=== PATIENT | male | born 1980 | race African-American/Black ===

== ENCOUNTER 2016-10-29 12:30 | Day surgery (SDC) | payer SELFPAY ==
[~2016-10-29 12:30] MED LIST: MUPI22OI2 TP
[2016-10-29] MEDS ORDERED: MAGNESIUM SULFATE 2GM 50 ML IV ONE (14:45)
[2016-10-29] MEDS ORDERED: EPINEPHRINE VIAL 4 MG in IV NORMAL SALINE 250ML 250 ML IV PRN (15:00)
[2016-10-29] MEDS ORDERED: VANCOMYCIN PER PHARMACY MC PRN (15:00)
[2016-10-29] MEDS: IV NORMAL SALINE 1000ML BAG 1,000 ML IV PRN (15:41)
[2016-10-29] MEDS ORDERED: VECURONIUM BOLUS 10 MG VIAL. IV ONE (15:45)
--- NOTE | 2016-10-29 16:37 | RAD ---
Portable chest, 10/29/2016: History: Post bronchoscopy evaluation Comparison is made to the study of earlier the same day. The ET tube remains in place in satisfactory position. An NG tube extends into the stomach. A right subclavian catheter extends to the level of the atriocaval junction. The heart size is normal. There are mild patchy perihilar infiltrates, left greater than right. These have worsened slightly since earlier in the day. No pleural fluid or pneumothorax is evident. IMPRESSION: Slight interval worsening of the bilateral pulmonary infiltrates.
[2016-10-29] MEDS ORDERED: INSULIN REGULAR VIAL 150 UNIT in 0.9 % SODIUM CHLORIDE 150ML 150 ML IV PRN (16:45)
[2016-10-29 16:58] LABS: HCO3 ABG 24 mmol/L (21-28); PCO2 ABG 50 mmHg (35-46); PO2 ABG 99 mmHg (85-108); SAT O2 ABG 97 % (92-99)
[2016-10-29 16:59] LABS: FIO2 ABG 40
[2016-10-29 17:15] LABS: BASO # 0.1 x10^3/uL (0.0-0.2); BASO % 0 % (0-3); EOS % 0 % (0-3); HEMATOCRIT 31.2 % (39.0-53.0); HEMOGLOBIN 10.1 g/dL (13.0-17.5); LYMPH % 2 % (24-48); MEAN CORPUSCULAR HEMOGLOBIN 31 pg (25-35); MEAN CORPUSCULAR HGB CONC 32 g/dL (31-37); MEAN CORPUSCULAR VOLUME 96 fL (79-100); MONO % 7 % (0-9); NEUT % 90 % (31-73); PLATELET COUNT 70 x10^3/uL (140-400); RED BLOOD COUNT 3.25 x10^6/uL (4.30-5.70); RED CELL DISTRIBUTION WIDTH 14.5 % (11.5-14.5)
[2016-10-29 17:18] LABS: WHITE BLOOD COUNT 44.5 x10^3/uL (4.0-11.0)
[2016-10-29 17:22] LABS: CREATININE 1.3 mg/dL (0.7-1.3); GFR 76.5; POTASSIUM 4.3 mmol/L (3.5-5.1)
[2016-10-29 17:23] LABS: PROTHROMBIN TIME PATIENT 21.7 SEC (11.7-14.0)
[2016-10-29 17:28] LABS: ALBUMIN 2.1 g/dL (3.4-5.0); ALBUMIN/GLOBULIN RATIO 0.6 (1.0-1.7); DIRECT BILIRUBIN 0.2 mg/dL (0.0-0.2); MAGNESIUM 1.7 mg/dL (1.8-2.4); PHOSPHORUS 5.8 mg/dL (2.6-4.7); TOTAL BILIRUBIN 0.5 mg/dL (0.2-1.0); TOTAL PROTEIN 5.6 g/dL (6.4-8.2)
[2016-10-29 17:42] LABS: BILIRUBIN,URINE NEGATIVE (NEG); GLUCOSE,URINE >=1000 mg/dL (NEG); NITRITE,URINE NEGATIVE (NEG); PROTEIN,URINE NEGATIVE (NEG-TRACE); UROBILINOGEN,URINE 0.2 mg/dL (0.2 mg/dL)
[2016-10-29 17:58] LABS: BACTERIA,URINE 0 /HPF (0-FEW); SQUAMOUS EPITHELIAL CELL,UR OCC /LPF; WBC,URINE OCC /HPF (0-4)
[2016-10-29] MEDS ORDERED: VASOPRESSIN 40 UNIT in IV DEXTROSE 5% 100 ML IV PRN (18:00)
[2016-10-29] MEDS: VANCOMYCIN 1 GM in IV NORMAL SALINE 250ML 250 ML IV SCH (19:58)
[2016-10-29] MEDS: CEFTRIAXONE SODIUM 2 GM in IV NORMAL SALINE 100ML 100 ML IV SCH (21:06)
[2016-10-29 22:08] LABS: BASO # 0.1 x10^3/uL (0.0-0.2); BASO % 0 % (0-3); EOS % 0 % (0-3); HEMATOCRIT 29.8 % (39.0-53.0); HEMOGLOBIN 9.8 g/dL (13.0-17.5); LYMPH # 0.7 x10^3/uL (1.0-4.8); LYMPH % 2 % (24-48); MEAN CORPUSCULAR HEMOGLOBIN 31 pg (25-35); MEAN CORPUSCULAR HGB CONC 33 g/dL (31-37); MEAN CORPUSCULAR VOLUME 95 fL (79-100); MONO % 5 % (0-9); NEUT % 93 % (31-73); PLATELET COUNT 75 x10^3/uL (140-400); RED BLOOD COUNT 3.14 x10^6/uL (4.30-5.70); RED CELL DISTRIBUTION WIDTH 14.4 % (11.5-14.5); WHITE BLOOD COUNT 37.5 x10^3/uL (4.0-11.0)
[2016-10-29 22:19] LABS: INR 1.9 (0.8-1.1); PROTHROMBIN TIME PATIENT 20.4 SEC (11.7-14.0)
[2016-10-29 22:26] LABS: ALBUMIN 2.1 g/dL (3.4-5.0); DIRECT BILIRUBIN 0.1 mg/dL (0.0-0.2); MAGNESIUM 2.2 mg/dL (1.8-2.4); PHOSPHORUS 3.6 mg/dL (2.6-4.7); TOTAL BILIRUBIN 0.3 mg/dL (0.2-1.0); TOTAL PROTEIN 5.7 g/dL (6.4-8.2)
[2016-10-29] MEDS: POTASSIUM CHLORIDE 20MEQ 50 ML IV SCH ×2 (22:34→23:20)
[2016-10-29 22:38] LABS: CKMB INDEX 6.6 % (0-4); CKMB MASS 21.6 ng/mL (0.0-3.6)
[2016-10-29] MEDS ORDERED: CALCIUM GLUCONATE 1,000 MG/10 ML VIAL IVP ONE (23:00)
[2016-10-30 06:24] LABS: BASO % 0 % (0-3); EOS % 0 % (0-3); HEMATOCRIT 30.1 % (39.0-53.0); HEMOGLOBIN 9.7 g/dL (13.0-17.5); LYMPH # 0.7 x10^3/uL (1.0-4.8); LYMPH % 2 % (24-48); MEAN CORPUSCULAR HEMOGLOBIN 31 pg (25-35); MEAN CORPUSCULAR HGB CONC 32 g/dL (31-37); MEAN CORPUSCULAR VOLUME 97 fL (79-100); MONO % 7 % (0-9); NEUT % 91 % (31-73); PLATELET COUNT 65 x10^3/uL (140-400); RED BLOOD COUNT 3.11 x10^6/uL (4.30-5.70); RED CELL DISTRIBUTION WIDTH 14.6 % (11.5-14.5); WHITE BLOOD COUNT 39.9 x10^3/uL (4.0-11.0)
[2016-10-30 06:47] LABS: ALBUMIN 2.2 g/dL (3.4-5.0); DIRECT BILIRUBIN 0.2 mg/dL (0.0-0.2); MAGNESIUM 2.1 mg/dL (1.8-2.4); PHOSPHORUS 3.4 mg/dL (2.6-4.7); TOTAL BILIRUBIN 0.5 mg/dL (0.2-1.0); TOTAL PROTEIN 5.1 g/dL (6.4-8.2)
[2016-10-30 06:48] LABS: INR 1.7 (0.8-1.1); PROTHROMBIN TIME PATIENT 18.7 SEC (11.7-14.0)
[2016-10-30 07:02] LABS: CKMB INDEX 4.9 % (0-4); CKMB MASS 15.4 ng/mL (0.0-3.6)
--- NOTE | 2016-10-30 08:06 | RAD ---
Portable chest, 10/30/2016: History: Respiratory failure, planned organ donation Comparison is made to yesterday's study. The ET tube has its tip located well above the fallon. An NG tube extends into the stomach. A right subclavian central venous catheter extends to the level of the atriocaval junction. The heart size is normal. Mild parahilar infiltrates have partially cleared. There is no evidence of pneumothorax or pleural fluid. No new abnormality is detected. IMPRESSION: Improving pulmonary infiltrates.
--- NOTE | 2016-10-30 08:12 | EKG ---
[facility] [address] [place] [address] Test Date: 2016-10-30 Test Time: 08:04:57 Pat Name: DIMITRI PHAM Department: Room: 103 1 Gender: M Bow Stapler: LUIS A : 1980 Requested By: JOB RPINCE Order Number: [id number] Reading MD: Walter Walters Measurements Intervals [place] Rate: 112 P: 56 [place]: 140 QRS: 74 QRSD: 80 T: 59 QT: 328 QTc: 449 Interpretive Statements SINUS TACHYCARDIA OTHERWISE NORMAL ECG Electronically Signed On 10-30-2016 8:55:55 OIL PAINTER by Walter Walters
--- NOTE | 2016-10-30 08:54 | CARD ---
APPROVED REPORT EXAM: Two-dimensional and M-mode echocardiogram with Doppler and color Doppler. Other Information Quality : Average Rhythm : NSR INDICATION Organ Donation evaluation 2D DIMENSIONS Left Atrium(2D)3.6 (1.6-4.0cm)IVSd0.6 (0.7-1.1cm) Aortic Root(2D)2.4 (2.0-3.7cm)LVDd5.3 (3.9-5.9cm) LVOT Diameter2.0 (1.8-2.4cm)PWd0.7 (0.7-1.1cm) LVDs3.5 (2.5-4.0cm)FS (%) 34.0 % SV84.6 mlLVEF(%)62.5 (>50%) Aortic Valve AoV Peak Wesley.165.2cm/sAoV VTI31.6cm AO Peak GR.10.9mmHgLVOT VTI 25.95cm AO Mean GR.6mmHgAVA (VTI)2.48cm2 Mitral Valve MV E Peak Gr.7mmHgMV E Mean Gr.5mmHg MV LGW19vyKRK (PHT)4.07cm2 TDI Lateral E' P. V15.83cm/sMedial E' P. V15.25cm/s Tricuspid Valve TR P. Aeddnqfp530hm/sRAP XYTMOWNS98rhOs TR Peak Gr.32pqUyYLPR12pzAt Pulmonary Vein S1 Pcjynpcc06.2cm/sS2 Kiyleslm74.19cm/s D2 Nwjjtilg21.2cm/s LEFT VENTRICLE The left ventricle is normal size. There is normal left ventricular wall thickness. Left ventricle sy stolic function is normal. The Ejection Fraction is 60%. There is normal LV segmental wall motion. Th e left ventricular diastolic function and filling is normal for age. RIGHT VENTRICLE The right ventricle is normal size. The right ventricular systolic function is normal. ATRIA The left atrium size is normal. The right atrium size is normal. The interatrial septum is intact wit h no evidence for an atrial septal defect or patent foramen ovale as noted on 2-D or Doppler imaging. AORTIC VALVE The aortic valve is normal in structure and function. The aortic valve is trileaflet. Doppler and Col or Flow revealed no significant aortic regurgitation. There is no significant aortic valvular stenosi s. MITRAL VALVE The mitral valve is normal in structure and function. There is no mitral valve stenosis. Doppler and Color Flow revealed mild mitral regurgitation. TRICUSPID VALVE The tricuspid valve is normal in structure and function. Doppler and Color Flow revealed trace to mil d tricuspid regurgitation. The PA pressure was estimated at 35 mmHg. There is no tricuspid valve sten osis. PULMONIC VALVE The pulmonary valve is normal in structure and function. Doppler and Color Flow revealed no pulmonic valvular regurgitation. There is no pulmonic valvular stenosis. GREAT VESSELS The aortic root is normal in size. The ascending aorta is normal in size. Normal pulmonary venous jos w (Doppler). The IVC is dilated and collapses <50% with inspiration. PERICARDIAL EFFUSION There is no evidence of significant pericardial effusion. Critical Notification Critical Value: No <Conclusion> Left ventricle systolic function is normal. The Ejection Fraction is 60%. There is normal LV segmental wall motion. Trace to mild tricuspid regurgitation. The PA pressure was estimated at 35 mmHg. There is no evidence of significant pericardial effusion.
[2016-10-30] MEDS: VANCOMYCIN 1 GM in IV NORMAL SALINE 250ML 250 ML IV SCH ×2 (10:24→19:53)
[2016-10-30] MEDS: CEFTRIAXONE SODIUM 2 GM in IV NORMAL SALINE 100ML 100 ML IV SCH ×2 (10:24→20:58)
[2016-10-30 12:25] LABS: BASO # 0.1 x10^3/uL (0.0-0.2); BASO % 0 % (0-3); EOS % 0 % (0-3); HEMOGLOBIN 9.1 g/dL (13.0-17.5); LYMPH # 1.1 x10^3/uL (1.0-4.8); LYMPH % 3 % (24-48); MEAN CORPUSCULAR HEMOGLOBIN 31 pg (25-35); MEAN CORPUSCULAR HGB CONC 33 g/dL (31-37); MEAN CORPUSCULAR VOLUME 96 fL (79-100); MONO % 6 % (0-9); NEUT % 91 % (31-73); PLATELET COUNT 74 x10^3/uL (140-400); RED BLOOD COUNT 2.91 x10^6/uL (4.30-5.70); RED CELL DISTRIBUTION WIDTH 14.2 % (11.5-14.5)
[2016-10-30 12:27] LABS: ALBUMIN 2.1 g/dL (3.4-5.0); DIRECT BILIRUBIN 0.1 mg/dL (0.0-0.2); PHOSPHORUS 2.7 mg/dL (2.6-4.7); TOTAL BILIRUBIN 0.4 mg/dL (0.2-1.0); TOTAL PROTEIN 5.8 g/dL (6.4-8.2); WHITE BLOOD COUNT 41.6 x10^3/uL (4.0-11.0)
[2016-10-30 12:31] LABS: INR 1.6 (0.8-1.1); PROTHROMBIN TIME PATIENT 18.5 SEC (11.7-14.0)
[2016-10-30 12:38] LABS: CKMB INDEX 3.7 % (0-4); CKMB MASS 14.4 ng/mL (0.0-3.6)
[2016-10-30] MEDS ORDERED: NORMAL SALINE IV ONE (13:30)
[2016-10-30] MEDS ORDERED: POTASSIUM PHOSPHATE DIBASIC IV ONE (13:30)
[2016-10-30 13:54] VITALS: BP 122/74
[2016-10-30 14:00] VITALS: BP 122/76
[2016-10-30 14:10] VITALS: BP 124/76
[2016-10-30 14:24] VITALS: BP 138/90
--- NOTE | 2016-10-30 15:19 | PATHOLOGY ---
CYTOPATHOLOGY REPORT CLINICAL HISTORY: Organ retrieval. SPECIMEN(S) RECEIVED: A.Bronchoalveolar lavage, Right lung B.Bronchoalveolar lavage, Left lung FINAL DIAGNOSIS: A. Right lung bronchoalveolar lavage, ThinPrep and silver stain: - No malignant cells identified. - Bronchial epithelial cells and pulmonary macrophages identified within a background of predominantly acute inflammatory cells and red blood cells. - Silver stain is negative for Pneumocystis organisms and yeast/fungal organisms. B. Left lung bronchoalveolar lavage, ThinPrep and silver stain: - No malignant cells identified. - Few Bronchial epithelial cells and pulmonary macrophages identified within a background of predominantly acute inflammatory cells. - Silver stain is negative for Pneumocystis organisms and positive for yeast/fungal organisms morphologically consistent with Kaye species. (JPM:all; d/t: 10/30/2016) PATHOLOGIST: Ki Reyna M.D. REPORT ELECTRONICALLY SIGNED BY: Ki Reyna M.D. DATE/TIME: 10/30/2016 15:19 GROSS PATHOLOGY: A. Bronchoalveolar lavage, Right lung: The specimen is submitted unfixed, labeled "Fabian Pham". Received by the Cytology Department is five mL of pink cloudy fluid. One ThinPrep slide was prepared. B. Bronchoalveolar lavage, Left lung: The specimen is submitted unfixed, labeled "Fabian Pham". Received by the Cytology Department is five mL of light pink fluid. One ThinPrep slide was prepared. (clt 2.) [employer]GE ATTENDANT(S): MATTHEW Chao(ASCP) INITIAL CPT CODE(S): A; 84351, 75284 B; 09252, 31065 Professional services performed [place] [facility] [place] [address] Technical services performed by [facility] at [address] [place] [address], [address], [place] [address]. PATIENT: FABIAN PHAM /AGE: 6 1980 (Age: 36) SEX: M PATIENT #: [id number] ALT CASE #: SPECIMEN COLLECTION DATE: 10/29/2016 SPECIMEN RECEIVED DATE: 10/29/[address] [facility] [address] [place] [address], [address] [place] [address] PHONE: [phone] DIRECTOR: Armando W. Miguel, M.D. * * * END OF REPORT * * *
--- NOTE | 2016-10-30 16:08 | RAD ---
Portable chest, 10/30/2016, 3:46 PM: History: Respiratory failure, planned organ donation Comparison is made to the study of earlier the same day. The ET tube, NG tube and right subclavian central venous catheter remain in place in satisfactory positions. The heart size and pulmonary vascularity are normal. Mild left parahilar infiltrates have partially cleared. There is an increasing right parahilar discoid opacity most compatible with atelectasis. There is no evidence of pneumothorax or pleural fluid. IMPRESSION: 1. The various tubes and catheters are in satisfactory positions. 2. New right parahilar discoid atelectasis.
[2016-10-30 18:21] LABS: BASO % 0 % (0-3); EOS % 0 % (0-3); HEMATOCRIT 27.4 % (39.0-53.0); HEMOGLOBIN 9.1 g/dL (13.0-17.5); LYMPH # 0.9 x10^3/uL (1.0-4.8); LYMPH % 2 % (24-48); MEAN CORPUSCULAR HEMOGLOBIN 31 pg (25-35); MEAN CORPUSCULAR HGB CONC 33 g/dL (31-37); MEAN CORPUSCULAR VOLUME 94 fL (79-100); MONO % 6 % (0-9); NEUT % 92 % (31-73); PLATELET COUNT 69 x10^3/uL (140-400); RED BLOOD COUNT 2.91 x10^6/uL (4.30-5.70); RED CELL DISTRIBUTION WIDTH 14.7 % (11.5-14.5)
[2016-10-30 18:25] LABS: INR 1.6 (0.8-1.1); PROTHROMBIN TIME PATIENT 17.9 SEC (11.7-14.0)
[2016-10-30 18:26] LABS: WHITE BLOOD COUNT 43.4 x10^3/uL (4.0-11.0)
--- NOTE | 2016-10-30 18:26 | RAD ---
Portable chest one view Indication: Organ transplant evaluation. Time of exam 6:00 p.m. The ET tube has the tip in good position above the fallon. Right-sided line has tip overlying the SVC. The lungs demonstrate minimal patchy airspace infiltrate in the mid to lower left lung field. There is also some questionable infiltrate or atelectasis right midlung. No effusion is seen. No pneumothorax. Impression: Minimal bilateral patchy airspace infiltrates or atelectasis. Electronically signed by: Jonah Francisco MD (Oct 30, 2016 18:25:04)
[2016-10-30 18:29] LABS: ALBUMIN 2.2 g/dL (3.4-5.0); DIRECT BILIRUBIN 0.1 mg/dL (0.0-0.2); MAGNESIUM 2.1 mg/dL (1.8-2.4); PHOSPHORUS 3.8 mg/dL (2.6-4.7); TOTAL BILIRUBIN 0.4 mg/dL (0.2-1.0); TOTAL PROTEIN 5.9 g/dL (6.4-8.2)
[2016-10-30 18:38] LABS: CKMB INDEX 3.4 % (0-4); CKMB MASS 12.1 ng/mL (0.0-3.6)
[2016-10-30] MEDS ORDERED: DESMOPRESSIN 4 MCG/ML AMPUL. IV ONE (19:15)
--- NOTE | 2016-10-30 23:04 | RAD ---
CT chest without contrast Indication: Evaluate lungs for organ donation. Axial imaging through the chest was performed without contrast. Patient is intubated. The ET tube has the tip above the fallon. Heart size is normal. No pericardial effusion is seen. Minimal pleural effusion is identified bilaterally. No axillary lymphadenopathy is seen. Hilar and mediastinal evaluation is limited without intravenous contrast. Parenchymal evaluation does show patchy airspace infiltrates in bilateral lung apices. There is also airspace consolidation in bilateral posterior lower lobes. This may indicate pneumonia or atelectasis. The upper abdomen is unremarkable. Impression: There are airspace pulmonary infiltrates bilateral upper lobes and bilateral lower lobes. Minimal pleural fluid is present. Electronically signed by: Jonah rFancisco MD (Oct 30, 2016 23:03:12)
[2016-10-31 00:26] LABS: BASO % 0 % (0-3); EOS % 0 % (0-3); HEMATOCRIT 29.1 % (39.0-53.0); HEMOGLOBIN 9.3 g/dL (13.0-17.5); LYMPH # 0.8 x10^3/uL (1.0-4.8); LYMPH % 2 % (24-48); MEAN CORPUSCULAR HEMOGLOBIN 31 pg (25-35); MEAN CORPUSCULAR HGB CONC 32 g/dL (31-37); MEAN CORPUSCULAR VOLUME 98 fL (79-100); MONO % 6 % (0-9); NEUT % 92 % (31-73); PLATELET COUNT 72 x10^3/uL (140-400); RED BLOOD COUNT 2.98 x10^6/uL (4.30-5.70); RED CELL DISTRIBUTION WIDTH 14.2 % (11.5-14.5); WHITE BLOOD COUNT 39.4 x10^3/uL (4.0-11.0)
[2016-10-31 00:39] LABS: INR 1.6 (0.8-1.1); PROTHROMBIN TIME PATIENT 17.7 SEC (11.7-14.0)
[2016-10-31 00:47] LABS: ALBUMIN 2.3 g/dL (3.4-5.0); DIRECT BILIRUBIN 0.2 mg/dL (0.0-0.2); MAGNESIUM 2.2 mg/dL (1.8-2.4); PHOSPHORUS 3.2 mg/dL (2.6-4.7); TOTAL BILIRUBIN 0.5 mg/dL (0.2-1.0); TOTAL PROTEIN 6.1 g/dL (6.4-8.2)
[2016-10-31 00:57] LABS: CKMB INDEX 2.7 % (0-4); CKMB MASS 7.9 ng/mL (0.0-3.6)
[2016-10-31] MEDS ORDERED: MEROPENEM 1 GM in IV NORMAL SALINE 100ML 100 ML IV ONE (01:00)
[2016-10-31] MEDS ORDERED: DESMOPRESSIN 4 MCG/ML AMPUL. IV ONE ×2 (02:00→07:00)
[2016-10-31 04:38] LABS: BILIRUBIN,URINE NEGATIVE (NEG); GLUCOSE,URINE 100 mg/dL (NEG); NITRITE,URINE NEGATIVE (NEG); PH,URINE 5.5; PROTEIN,URINE NEGATIVE (NEG-TRACE); UROBILINOGEN,URINE 0.2 mg/dL (0.2 mg/dL)
[2016-10-31 04:49] LABS: BACTERIA,URINE 0 /HPF (0-FEW); SQUAMOUS EPITHELIAL CELL,UR OCC /LPF
[2016-10-31] MEDS ORDERED: ROCURONIUM 50 MG/5 ML VIAL. ONE (07:46)
[2016-11-02 13:10] LABS: LEGION DFA AG Not Detected (.); LEGION DFA INFO Not Detected (.)
[2016-11-11 16:17] LABS: LEGIONELLA CULTURE Final report (.)
== END 2016-10-31 14:00 | disposition expired ==
LOC: OPS 12:30 → 1 WEST ICU 12:31 → OPS 14:19
PROVIDERS: ATTEND Surgery
DX: R91.8 Other nonspecific abnormal finding of lung field (principal)
CPT/HCPCS: 31622; 36415; 36600; 71010; 71250; 80053; 80076; 80202; 81001; 82150; 82553; 82805; 82947; 82977; 83615; 83690; 83735; 84100; 85027; 85384; 85610; 85730; 86713; 86850; 86900; 86901; 86927; 87040; 87070; 87081; 87086; 87102; 87116; 87205; 87252; 88112; 88312; 93005; 93306; 94003; J0610; J0696; J1815; J2020; J2185; J2597; J3370; J3480; J3490; J7030; J7050; J7060; P9017